=== PATIENT | female | born 1960 | race Two or more races ===

== ENCOUNTER 2025-01-03 17:35 | Emergency (ER) | payer BC ==
[~2025-01-03] VITALS: Ht 162.6 cm; Wt 55.8 kg
[2025-01-03 18:34] LABS: PLATELET COUNT (AUTO) 191 K/uL (150-450); RED BLOOD CELL COUNT(AUTO) 3.28 MIL/uL (4.0-5.2); RED CELL DISTRIBUTION WIDTH 12.5 % (11.5-15.0); WHITE BLOOD COUNT (AUTO) 4.1 K/uL (4.3-11.0)
[2025-01-03 18:51] LABS: CALCIUM, SERUM 8.3 mg/dL (8.5-10.1); CREATININE 0.9 mg/dL (0.6-1.3); SODIUM SERUM 137.0 mmol/L (136-145); UREA NITROGEN, BLOOD 14.0 mg/dL (7-18)
[2025-01-03] MEDS ORDERED: CLIN300C12 PO (19:05)
[2025-01-03 19:31] VITALS: BP 121/60; TEMP 98; O2SAT 94
== END 2025-01-03 19:31 | disposition home or self-care (01) ==
LOC: ER 17:53
DX: L03.116 Cellulitis of left lower limb (principal); L03.115 Cellulitis of right lower limb; F32.A Depression, unspecified; Z88.8 Allergy status to other drugs, medicaments and biological substances
CPT/HCPCS: 36415; 80048-TC; 85025-TC